=== PATIENT | male | born 1935 | race Caucasian/White ===

== ENCOUNTER 2017-03-06 07:16 | Day surgery (SDC) | payer OTHER ==
[~2017-03-06] VITALS: Ht 177.8 cm; Wt 109.0 kg
[~2017-03-06 07:16] MED LIST: ASPIRIN EC325 MG PO; CELEBREX200 MG PO; ELIQUIS2.5 MG PO; ENDOCET 7.5-321 EACH; FLEXERIL10 MG; HYDROCHLOROTHIA25 MG; HYDROCHLOROTHIA25 MG PO; LISINOPRIL20 MG PO; NEURONTIN300 MG; NEURONTIN300 MG PO; NEXIUM40 MG; NEXIUM40 MG PO; NORVASC5 MG PO; PRAVACHOL20 MG PO; SPIRIVA1 INHALATI; SPIRIVA1 INHALATI IH
== END 2017-03-06 18:03 | disposition home or self-care (01) ==
LOC: CATH 07:16
PROC: 4A023N7 Measurement of Cardiac Sampling and Pressure, Left Heart, Percutaneous Approach (ICD-10-PCS; principal; 2017-03-06)
DX: I25.810 Atherosclerosis of coronary artery bypass graft(s) without angina pectoris (principal); I35.0 Nonrheumatic aortic (valve) stenosis; I48.91 Unspecified atrial fibrillation; I49.5 Sick sinus syndrome; I65.29 Occlusion and stenosis of unspecified carotid artery; I10 Essential (primary) hypertension; E78.5 Hyperlipidemia, unspecified; J44.9 Chronic obstructive pulmonary disease, unspecified; E66.9 Obesity, unspecified; Z79.01 Long term (current) use of anticoagulants; Z95.0 Presence of cardiac pacemaker; Z87.891 Personal history of nicotine dependence; Z68.36 Body mass index [BMI] 36.0-36.9, adult
CPT/HCPCS: C1769; C1887; C1894; J0360; J1644; J2250; J3010

== ENCOUNTER 2017-06-24 16:25 | Observation (INO) | payer OTHER ==
[~2017-06-24] VITALS: Ht 177.8 cm; Wt 100.2 kg
[2017-06-24 17:42] LABS: HEMATOCRIT 38.3 % (38.0-50.0); MCH 30.5 PG (29.0-34.0); MCHC 33.9 G/DL (30.0-36.0); MCV 89.9 FL (86-99); MEAN PLAT.VOLUME 9.7 uM^3 (9.0-12.4); PLATELET COUNT 221 K/uL (156-360); RBC DIS.WIDTH-CV 12.8 % (11.8-14.6); RED BLOOD COUNT 4.26 M/uL (4.00-5.50); WHITE BLOOD COUNT 9.2 K/uL (4.1-10.2)
[2017-06-24 17:48] LABS: INTER. NORMALIZED RATIO 1.3; PROTHROMBIN TIME 14.5 SEC (10.2-12.9)
[2017-06-24 17:53] LABS: CHLORIDE 105 mEq/L (99-109); POTASSIUM 4.1 mEq/L (3.7-5.4); SODIUM 139 mEq/L (136-147)
[2017-06-24 17:56] LABS: GLUCOSE 100 mg/dL (70-99)
[2017-06-24 17:57] LABS: ANION GAP 11 MEQ/L (2-14)
[2017-06-24 17:58] LABS: TOTAL BILIRUBIN 0.9 mg/dL (0.0-1.0)
[2017-06-24 17:59] LABS: ALKALINE PHOSPHATASE 93 IU/L (3-129); GFR ESTIMATE (CALCULATED) 51 mL/min/
[2017-06-24 18:00] LABS: UREA NITROGEN (BUN) 14 mg/dL (9-23)
[2017-06-24] MEDS ORDERED: PRAVASTATIN SOD80 MG PO (18:01)
[2017-06-24] MEDS ORDERED: METOPROLOL SUCC50 MG PO (18:01)
[2017-06-24] MEDS ORDERED: AMLODIPINE BES2.5 MG PO (18:02)
[2017-06-24] MEDS ORDERED: CLOPIDOGREL75 MG PO (18:02)
[2017-06-24 18:03] LABS: TROP-I INTERPRETATION NEGATIVE; TROPONIN-I 0.02 ng/mL (0.0-0.30)
[2017-06-24 22:03] VITALS: BP 177/78
[2017-06-24 23:16] LABS: TROP-I INTERPRETATION NEGATIVE; TROPONIN-I 0.02 ng/mL (0.0-0.30)
[2017-06-25] MEDS ORDERED: PRAVASTATIN SOD80 MG PO (00:33)
[2017-06-25] MEDS ORDERED: AMLODIPINE BES2.5 MG PO (00:34)
[2017-06-25] MEDS ORDERED: METOPROLOL SUCC50 MG PO (00:34)
[2017-06-25] MEDS ORDERED: CLOPIDOGREL75 MG PO (00:34)
[2017-06-25] MEDS ORDERED: XARELTO15 MG PO (00:35)
[2017-06-25] MEDS ORDERED: ESOMEPRAZOLE MA40 MG PO (00:35)
[2017-06-25] MEDS ORDERED: LISINOPRIL20 MG PO (00:35)
[2017-06-25] MEDS ORDERED: COLACE100 MG PO (00:36)
[2017-06-25] MEDS ORDERED: GABAPENTIN300 MG PO (00:36)
[2017-06-25 04:21] VITALS: BP 176/79
[2017-06-25 06:56] LABS: MCH 30.6 PG (29.0-34.0); MCHC 34.1 G/DL (30.0-36.0); MCV 89.9 FL (86-99); MEAN PLAT.VOLUME 9.7 uM^3 (9.0-12.4); PLATELET COUNT 231 K/uL (156-360); RBC DIS.WIDTH-CV 12.7 % (11.8-14.6); RBC DIS.WIDTH-SD 41.7 % (39-53); RED BLOOD COUNT 4.34 M/uL (4.00-5.50); WHITE BLOOD COUNT 8.2 K/uL (4.1-10.2)
[2017-06-25 07:10] LABS: TROP-I INTERPRETATION NEGATIVE; TROPONIN-I 0.04 ng/mL (0.0-0.30)
[2017-06-25 07:21] LABS: ANION GAP 8 MEQ/L (2-14); CHLORIDE 104 MEQ/L (99-109); GFR ESTIMATE (CALCULATED) 56 mL/min/; GLUCOSE 95 mg/dL (70-99); HDL CHOLESTEROL 39 MG/DL (Desirable>=40); LDL CHOLESTEROL 64 mg/dL (Desirable<100); NON-HDL CHOLESTEROL 98 mg/dL (Desirable<160); POTASSIUM 4.3 MEQ/L (3.7-5.4); SAMPLE HEMOLYSIS CHECK 0; SAMPLE ICTERIC CHECK 0; SAMPLE LIPEMIA CHECK 0; SODIUM 140 MEQ/L (136-147); TOTAL CHOLESTEROL 137 mg/dL (Desirable<200); TRIGLYCERIDES 170 MG/DL (Normal: <150); UREA NITROGEN (BUN) 14 mg/dL (9-23)
[2017-06-25 07:37] VITALS: BP 138/70
[2017-06-25 07:40] LABS: Estimated Average Glucose 100 mg/dL (70-123); HEMOGLOBIN A1c (GLYCOHEMOGLOB) 5.1 % HGB (Below 5.7)
[2017-06-25 12:00] VITALS: BP 137/67
== END 2017-06-25 15:06 | disposition home or self-care (01) ==
LOC: EME 16:25 → EDOF 21:25 → 5SOUTH 21:25 → ENRESERV 21:27 → 5SOUTH 23:04
PROVIDERS: Emergency Medicine; Hospitalist
DX: I63.531 Cerebral infarction due to unspecified occlusion or stenosis of right posterior cerebral artery (principal); I25.810 Atherosclerosis of coronary artery bypass graft(s) without angina pectoris; I25.82 Chronic total occlusion of coronary artery; Z95.0 Presence of cardiac pacemaker; J44.9 Chronic obstructive pulmonary disease, unspecified; I35.0 Nonrheumatic aortic (valve) stenosis; I49.5 Sick sinus syndrome; Z95.5 Presence of coronary angioplasty implant and graft; I10 Essential (primary) hypertension; E78.5 Hyperlipidemia, unspecified; I48.1 Persistent atrial fibrillation; Z87.891 Personal history of nicotine dependence; Z95.1 Presence of aortocoronary bypass graft; Z79.82 Long term (current) use of aspirin; Z79.01 Long term (current) use of anticoagulants; Z91.09 Other allergy status, other than to drugs and biological substances; Z96.643 Presence of artificial hip joint, bilateral; Z95.2 Presence of prosthetic heart valve; R09.89 Other specified symptoms and signs involving the circulatory and respiratory systems; Z82.49 Family history of ischemic heart disease and other diseases of the circulatory system; Z88.5 Allergy status to narcotic agent; Z66 Do not resuscitate
CPT/HCPCS: 70450; 71010; 80048; 80053; 80061; 83036; 84484; 85027; 85610; 92610 GN; 93005; 94640; 99281; 99285; G0378; J1644